=== PATIENT | male | born 1955 | race Hispanic/Latino ===

== ENCOUNTER 2019-02-11 01:32 | Emergency (ER) | payer MEDICARE ==
[2019-02-11] MEDS ORDERED: Lidocaine 5% Patch TD STA (02:22)
[2019-02-11 02:48] VITALS: TEMP 97.7
--- NOTE | 2019-02-11 02:55 | ED PDOC ---
Arrival/HPI - General Chief Complaint: Back Pain Time Seen by Provider: 02/11/19 01:49 Historian: Patient - History of Present Illness Narrative History of Present Illness (Text): 02/11/19 02:52 63 year old male, with no significant past medical history, presents to the emergency department by EMS with lower back and left leg pain. EMS states patient was ringing the doorbell to a local senior living, where he then called 911. Patient informs he has neuropathy but is not on medication because he does not live here. Patient states his pain is exacerbated by the position hes laying in. Patient denies any fevers, chills, headache, dizziness, chest pain, shortness of breath, cough, abdominal pain, nausea, vomiting, diarrhea, or any other complaints. Time/Duration: Prior to Arrival Symptom Onset: Gradual Symptom Course: Unchanged Quality: Aching Activities at Onset: Light Context: Street Past Medical History - Provider Review Nursing Documentation Reviewed: Yes - Endocrine/Metabolic Hx Diabetes Mellitus Type 2: Yes - Psychiatric Hx Substance Use: No - Anesthesia Hx Anesthesia: Yes Hx Anesthesia Reactions: No Hx Malignant Hyperthermia: No Family/Social History - Physician Review Nursing Documentation Reviewed: Yes Family/Social History: No Known Family HX Smoking Status: Light Smoker < 10 Cigarettes Daily Hx Alcohol Use: No (quit x 2 days ago) Hx Substance Use: No Allergies/Home Meds Allergies/Adverse Reactions: Allergies gabapentin Allergy (Verified 02/11/19 01:54) RASH Review of Systems - Physician Review All systems were reviewed & negative as marked: Yes - Review of Systems Constitutional: absent: Fevers, Night Sweats Respiratory: absent: SOB, Cough Cardiovascular: absent: Chest Pain Gastrointestinal: absent: Abdominal Pain, Diarrhea, Nausea, Vomiting Musculoskeletal: Back Pain Neurological: absent: Headache, Dizziness Physical Exam - Physical Exam Narrative Physical Exam (Text): 02/11/19 02:56 Gen: VS reviewed, alert, well developed, well nourished, nontoxic, mild distress, unkempt. ENT: normal pharynx. Eye: EOMI, PERRL. Neck: no JVD, supple, no adenopathy. CV: regular rate, regular rhythm, no rubs, no murmur, no gallops, S1, S2, pulses equal and strong. Pulm: no distress, clear to auscultation, no wheeze, no rhonchi, breath sounds equal, no rales. Abd: soft, nontender, no guarding, no rebound, no rigidity, normal bowel sounds. Back: diffuse lumbar paraspinal tenderness. Ext: no edema, limited ROM at hip secondary to pain. Skin: good color, no rash, no cyanosis. Psych: responds appropriately to questions, normal affect. Neuro: oriented x 3, CN2-12 intact grossly, motor intact, sensation intact. Vital Signs Reviewed: Yes Vital Signs Temp Pulse Resp BP Pulse Ox 02/11/19 02:26 97.7 F 75 19 130/66 98 Temperature: Afebrile Blood Pressure: Normal Pulse: Regular Respiratory Rate: Normal Appearance: Positive for: Well-Appearing, Non-Toxic, Comfortable Pain Distress: None Mental Status: Positive for: Alert and Oriented X 3 Medical Decision Making ED Course and Treatment: 02/11/19 03:00 Impression: 63 year old male presents with back pain. Plan: -- Tylenol -- Toradol -- Lidoderm -- X-ray LS Spine -- Reassess and disposition Prior Visits: Notes and results from previous visits were reviewed. Progress Notes: 02/11/19 04:41 patient reports that the low back pain has improved, will continue to observe 02/11/19 07:01 patient is awake and alert, pain improved, clinically sober, no s/s of alcohol withdrawal. patient encourage to follow up with pcp. patient was seen for low back pain, no neuro deficits, no hx ivda, no fever, no trauma. - RAD Interpretation Narrative RAD Interpretations (Text): 02/11/19 04:40 xr ls spine my read: no fx, djd Radiology Orders: 02/11/19 02:22 LS SPINE WITH OBL > 18 YRS OLD [RAD] Stat Research Spec: ED Physician - Medication Orders Current Medication Orders: Discontinued Medications Acetaminophen (Tylenol 325mg Tab) 975 mg PO STAT STA Stop: 02/11/19 02:23 Last Admin: 02/11/19 02:40 Dose: 975 mg MAR Pain/Vitals Document 02/11/19 02:40 EB (Rec: 02/11/19 02:40 EB [facility] [id number]) Pain Reassessment Is This A Pain ReAssessment? No Sleep Is patient sleeping during reassessment? No Presence of Pain Presence of Pain Yes Pain Scale Used Protocol: PSCALES Pain Scale Used Numeric Location Upper or Lower Lower Pain Location Body Site Back Ketorolac Tromethamine (Toradol) 60 mg IM STAT STA Stop: 02/11/19 02:23 Last Admin: 02/11/19 02:38 Dose: 60 mg MAR Pain Assessment Document 02/11/19 02:38 EB (Rec: 02/11/19 02:39 EB [id number]) Pain Reassessment Is this a pain reassessment? No Sleep Is patient sleeping during reassessment? No Presence of Pain Presence of Pain Yes Pain Scale Used Protocol: PSCALES Pain Scale Used Numeric Location Upper or Lower Lower Pain Location Body Site Back Description Intensity of Pain at present 6 IM Administration Charges Document 02/11/19 02:38 EB (Rec: 02/11/19 02:39 EB [id number]) Injection Site MAR Injection Site Right Deltoid Charges for Administration # of IM Administrations 1 Lidocaine (Lidoderm) 1 ea TD DAILY STA Stop: 02/11/19 02:23 Last Admin: 02/11/19 02:40 Dose: 1 ea MAR Transdermal Patch Site Document 02/11/19 02:40 EB (Rec: 02/11/19 02:41 EB [id number]) Transdermal Patch Site Transdermal Patch Site Left Lower Back - Scribe Statement The provider has reviewed the documentation as recorded by the Scribe Tank Sanders All medical record entries made by the Scribe were at my direction and personally dictated by me. I have reviewed the chart and agree that the record accurately reflects my personal performance of the history, physical exam, medical decision making, and the department course for this patient. I have also personally directed, reviewed, and agree with the discharge instructions and disposition. Disposition/Present on Arrival - Present on Arrival Any Indicators Present on Arrival: No History of DVT/PE: No History of Uncontrolled Diabetes: No Urinary Catheter: No History of Decub. Ulcer: No History Surgical Site Infection Following: None - Disposition Have Diagnosis and Disposition been Completed?: Yes Diagnosis: Low back pain Disposition: HOME/ ROUTINE Disposition Time: 07:02 Patient Plan: Discharge Patient Problems: Current Active Problems Problem Status Onset Low back pain Acute Condition: STABLE Discharge Instructions (ExitCare): Low Back Pain in Adults Additional Instructions: return for any new or worsening symptoms. follow up with your primary care doctor-you may need more advanced imaging (MRI) if the pain persists. Prescriptions: Cyclobenzaprine [Flexeril] 5 mg PO TID #15 tab Ibuprofen [Motrin Tab] 600 mg PO QID #42 tab Referrals: [facility] [Outside] - Follow up with primary Jessie Foster MD [Medical Doctor] - Follow up with primary Forms: [employer] ([place])
[2019-02-11 04:24] VITALS: RESP 18; O2SAT 99
[2019-02-11 06:30] VITALS: BP 135/78; PULSE 69
--- NOTE | 2019-02-11 10:13 | RAD ---
Date of service: 02/11/2019 PROCEDURE: Radiographs of the Lumbar Spine. HISTORY: low back pain COMPARISON: No prior. FINDINGS: BONES: Normal alignment. No listhesis. No fracture. DISC SPACES: There is facet arthropathy and sclerosis at L4-5 and L5-S1. OTHER FINDINGS: None. IMPRESSION: There is facet arthropathy and sclerosis at L4-5 and L5-S1.
== END 2019-02-11 07:23 | disposition home or self-care (01) ==
LOC: MERGE 01:32 → UNMERGE 01:32 → EDUNIT# 01:32 → ED 01:32
DX: M54.5 Low back pain (principal); E11.9 Type 2 diabetes mellitus without complications; F17.210 Nicotine dependence, cigarettes, uncomplicated
CPT/HCPCS: 72110; 96372; 99283; J1885